=== PATIENT | male | born 1990 | race Asian ===

== ENCOUNTER 2016-09-28 16:20 | Emergency (ER) | payer MEDICAID ==
[~2016-09-28] VITALS: Ht 175.3 cm; Wt 72.7 kg
[2016-09-28] MEDS ORDERED: VORT10TA PO (16:40)
[2016-09-28] MEDS ORDERED: TRAZ-147 PO (16:40)
[2016-09-28] MEDS ORDERED: MethylPREDNISolone SOD SUCC 125 MG/2 ML VIAL IVP ONE (16:45)
[2016-09-28] MEDS ORDERED: MethylPREDNISolone SOD SUCC 125 MG/2 ML VIAL IM ONE (17:30)
[2016-09-28] MEDS ORDERED: DiphenhydrAMINE HCL 50 MG/ML VIAL IM ONE (17:30)
[2016-09-28 17:49] LABS: EOSINOPHILS % (AUTO) 0.4 % (1.0-6.0); HEMATOCRIT 49.6 % (41-53); HEMOGLOBIN 16.5 g/dL (13.5-17.5); LYMPHOCYTES # (AUTO) 0.7 K/uL (1.0-4.8); LYMPHOCYTES % (AUTO) 8.7 % (22.0-44.0); MEAN CORPUSCULAR HEMOGLOBIN 28.2 pg (26.0-34.0); MEAN CORPUSCULAR HGB CONC 33.2 G/dL (31.0-37.0); MEAN CORPUSCULAR VOLUME 85 fL (80-100); MONOCYTES # (AUTO) 0.3 K/uL (0.1-1.0); MONOCYTES % (AUTO) 3.2 % (2.0-9.0); PLATELET COUNT (AUTO) 243 K/uL (150-450); RED BLOOD CELL COUNT(AUTO) 5.85 MIL/uL (4.50-5.90); RED CELL DISTRIBUTION WIDTH 12.8 % (11.5-14.5)
[2016-09-28 17:59] LABS: NEUTROPHILS % (AUTO) 87.7 % (40.0-70.0)
[2016-09-28 19:28] VITALS: BP 140/63
== END 2016-09-28 20:03 | disposition home or self-care (01) ==
LOC: EMS 16:21
DX: L50.0 Allergic urticaria (principal)
CPT/HCPCS: 36415; 85025; 86140; 96372; 96374; 99284; J1200; J2930